=== PATIENT | male | born 1995 | race African-American/Black ===

== ENCOUNTER 2016-08-28 23:43 | Inpatient (IN) | payer MEDICAID ==
[~2016-08-28] VITALS: Ht 170.2 cm; Wt 74.5 kg
[2016-08-29] MEDS ORDERED: SODIUM CHLORIDE 0.9% 1,000 ML IVB ONE (00:03)
[2016-08-29] MEDS ORDERED: LORazepam 2MG/ML-1ML VIAL IV ONE ×3 (00:15→09:45)
[2016-08-29] MEDS ORDERED: diphenhdrAMINE HCL 50 MG/1 ML VL ONE (00:22)
[2016-08-29] MEDS ORDERED: diphenhdrAMINE HCL 50 MG/1 ML VL IV ONE (00:30)
[2016-08-29 00:35] LABS: DEFINITIVE VIEW TRANSMISSION; Hematocrit 51.8 % (41.0-53.0); Hemoglobin 17.4 g/dL (13.5-17.5); Mean Corpuscular Hemoglobin 27.8 pg (28.0-32.0); Mean Corpuscular Hgb Conc. 33.5 g/dL (32.0-36.0); Mean Corpuscular Volume 82.8 fL (80.0-100.0); Mean Platelet Volume 8.1 fL (7.4-10.4); Platelet Count (auto) 400 10^3/uL (140-450); Red Cell Distribution Width 13.9 % (11.6-16.0); SUSPECT VIEW TRANSMISSION
[2016-08-29 00:45] LABS: Metamyelocytes % 0; Myelocytes % 0; Promyelocytes % 0; Reactive Lymphocytes 0
[2016-08-29 00:57] LABS: Albumin 5.2 g/dL (3.4-5.0); Anion Gap 13 (5-15); Aspartate Aminotransferase 28 U/L (15-37); BUN/Creatinine Ratio 15.7; Blood Urea Nitrogen 24 mg/dL (7-18); Carbon Dioxide 25 mmol/L (21-32); Chloride 106 mmol/L (98-107); GFR African American 74 mL/min; GFR Non-African American 61 mL/min; Glucose 136 mg/dL (74-106); Magnesium 2.1 mg/dL (1.6-2.6); Potassium 3.4 mmol/L (3.5-5.1); Sodium 144 mmol/L (136-145)
[2016-08-29 01:00] LABS: Alkaline Phosphatase 83 U/L (45-117); Bilirubin, Total 2.9 mg/dL (0.2-1.0)
[2016-08-29 01:03] LABS: Urine Bilirubin Negative (Negative); Urine Blood Negative /uL (Negative); Urine Color Yellow (Yellow); Urine Glucose Normal (Normal); Urine Mucus FEW (None Seen); Urine Nitrite Negative (Negative); Urine RBC 1 /hpf (0 - 3); Urine pH 5.5 (5.0-8.0)
[2016-08-29 01:04] LABS: Urine Ketone 2+ (Negative)
[2016-08-29 01:04] LABS: Salicylate < 1.7 mg/dL (2.8-20.0)
[2016-08-29 01:29] LABS: Acetaminophen < 2.0 ug/mL (10-30)
[2016-08-29 02:00] LABS: Platelet Estimate Adequate; RBC Morphology Normal
[2016-08-29] MEDS ORDERED: NITROGLYCERIN 0.4 MG SL TAB SL PRN (09:00)
[2016-08-29] MEDS ORDERED: HYDROcodone-ACET 5/325MG TAB PO PRN (09:00)
[2016-08-29] MEDS ORDERED: cefTRIAXone 1GM/50ML D5W 50 ML IV ONE (09:00)
[2016-08-29] MEDS ORDERED: LACTULOSE 20Gm/30ML SOLN PO PRN (09:00)
[2016-08-29] MEDS ORDERED: DEXTROSE (50%) 50ML SYRG IV PRN (09:00)
[2016-08-29] MEDS ORDERED: TEMAZEPAM 15 MG CAP PO PRN (09:00)
[2016-08-29] MEDS ORDERED: MORPHINE SULF INJ 2 MG/ML SYRINGE 1ML IV PRN ×2 (09:00)
[2016-08-29] MEDS ORDERED: PROCHLORPERAZINE EDISYLATE 5 MG/ML 2ML VIAL IV PRN (09:00)
[2016-08-29] MEDS ORDERED: ACETAMINOPHEN 500 MG TAB PO PRN (09:00)
[2016-08-29] MEDS ORDERED: LORazepam 2MG/ML-1ML VIAL ONE (09:33)
[2016-08-29] MEDS: SODIUM CHLORIDE 0.9% 1,000 ML IV SCH ×2 (09:34→19:43)
[2016-08-29] MEDS: cefTRIAXone 1GM/50ML D5W 50 ML IV SCH (09:48)
[2016-08-29 10:22] LABS: INR 1.11 (0.9-1.15); Partial Thromboplastin Time 27.2 sec (22.64-33.71)
[2016-08-29] MEDS: ACCU-CHEK COMFORT CURVE STRIP VI SCH ×3 (12:17→23:46)
[2016-08-29] MEDS ORDERED: ALBUTEROL SULF 2.5 MG/0.5ML(0.5%) NEB SOLN NEB PRN (13:15)
[2016-08-29 13:58] VITALS: BP 106/80
[2016-08-29] MEDS ORDERED: QUEtiapine FUMARATE 100 MG TAB PO ONE (15:15)
[2016-08-29] MEDS: LORazepam 0.5 MG TAB PO PRN (15:37)
[2016-08-29] MEDS: ALBUTEROL SULF 2.5 MG/0.5ML(0.5%) NEB SOLN NEB SCH ×2 (18:00→23:36)
[2016-08-30] MEDS: LORazepam 0.5 MG TAB PO PRN (02:24)
[2016-08-30 04:08] LABS: Basophils # (auto) 0 uL; Basophils % (auto) 0.4 % (0.0-2.0); Eosinophils # (auto) 0.2 uL; Eosinophils % (auto) 2.4 % (0.0-7.0); Hematocrit 45.5 % (41.0-53.0); Hemoglobin 15.1 g/dL (13.5-17.5); Lymphocytes # (auto) 2.9 uL; Lymphocytes % (auto) 34.9 % (10.0-50.0); Mean Corpuscular Hemoglobin 27.8 pg (28.0-32.0); Mean Corpuscular Hgb Conc. 33.2 g/dL (32.0-36.0); Mean Corpuscular Volume 83.8 fL (80.0-100.0); Mean Platelet Volume 8.3 fL (7.4-10.4); Monocytes # (auto) 0.7 uL; Monocytes % (auto) 8.6 % (0.0-12.0); Neutrophils # (auto) 4.5 uL; Neutrophils % (auto) 53.7 % (37.0-80.0); Platelet Count (auto) 287 10^3/uL (140-450); Red Cell Distribution Width 13.7 % (11.6-16.0); White Blood Cell 8.4 10^3/uL (4.4-10.8)
[2016-08-30 04:27] LABS: Albumin 3.5 g/dL (3.4-5.0); BUN/Creatinine Ratio 18.2; Bilirubin, Total 3.1 mg/dL (0.2-1.0); Calcium 8.4 mg/dL (8.5-10.1); Potassium 3.6 mmol/L (3.5-5.1); Total Protein 6.6 g/dL (6.4-8.2)
[2016-08-30] MEDS: SODIUM CHLORIDE 0.9% 1,000 ML IV SCH ×2 (05:08→18:18)
[2016-08-30] MEDS ORDERED: SODIUM CHLORIDE 0.9 % NEB SOLN 3ML NEB ONE ×2 (05:16→12:51)
[2016-08-30] MEDS: ACCU-CHEK COMFORT CURVE STRIP VI SCH ×3 (06:15→18:19)
[2016-08-30] MEDS: ALBUTEROL SULF 2.5 MG/0.5ML(0.5%) NEB SOLN NEB SCH ×3 (06:19→19:18)
[2016-08-30 09:00] VITALS: BP 103/48
[2016-08-30] MEDS: cefTRIAXone 1GM/50ML D5W 50 ML IV SCH (09:17)
[2016-08-30 13:00] VITALS: BP 105/51
[2016-08-30] MEDS ORDERED: AZITHROMYCIN 250 MG TAB PO ONE (13:00)
[2016-08-30 17:00] VITALS: BP 113/68
[2016-08-30 21:00] VITALS: BP_SYST 113; BP_SYST 117; BP_DIAS 69
[2016-08-30] MEDS ORDERED: QUEtiapine FUMARATE 100 MG TAB PO SCH (22:00)
[2016-08-31] MEDS: SODIUM CHLORIDE 0.9% 1,000 ML IV SCH ×2 (01:16→09:26)
[2016-08-31] MEDS: ALBUTEROL SULF 2.5 MG/0.5ML(0.5%) NEB SOLN NEB SCH ×3 (01:22→11:27)
[2016-08-31 05:00] VITALS: BP 108/96
[2016-08-31] MEDS: ACCU-CHEK COMFORT CURVE STRIP VI SCH ×3 (05:29→11:58)
[2016-08-31 06:29] LABS: Basophils # (auto) 0 uL; Basophils % (auto) 0.4 % (0.0-2.0); Eosinophils # (auto) 0.2 uL; Eosinophils % (auto) 2.3 % (0.0-7.0); Hematocrit 45.6 % (41.0-53.0); Hemoglobin 15.3 g/dL (13.5-17.5); Lymphocytes # (auto) 3.2 uL; Lymphocytes % (auto) 32.5 % (10.0-50.0); Mean Corpuscular Hgb Conc. 33.4 g/dL (32.0-36.0); Mean Corpuscular Volume 83.9 fL (80.0-100.0); Monocytes # (auto) 0.7 uL; Monocytes % (auto) 7.1 % (0.0-12.0); Neutrophils # (auto) 5.7 uL; Neutrophils % (auto) 57.7 % (37.0-80.0); Platelet Count (auto) 311 10^3/uL (140-450); Red Cell Distribution Width 13.4 % (11.6-16.0); White Blood Cell 9.8 10^3/uL (4.4-10.8)
[2016-08-31 06:46] LABS: Calcium 8.7 mg/dL (8.5-10.1); Magnesium 2.1 mg/dL (1.6-2.6); Phosphorus 3.9 mg/dL (2.5-4.90); Potassium 3.6 mmol/L (3.5-5.1)
[2016-08-31 09:00] VITALS: BP 110/62
[2016-08-31] MEDS: cefTRIAXone 1GM/50ML D5W 50 ML IV SCH (09:26)
[2016-08-31 13:42] VITALS: BP 110/62
[2016-08-31 14:28] VITALS: BP 110/62
== END 2016-08-31 15:21 | disposition home or self-care (01) | DRG 812 ==
LOC: ER 23:52 → TELE 23:53 → TELE-EAST 08-30 07:45
PROVIDERS: ADMIT Internal Medicine; ATTEND Nurse Practitioner Acute Care
DX: T43.621A Poisoning by amphetamines, accidental (unintentional), initial encounter (principal); G92 Toxic encephalopathy; N17.9 Acute kidney failure, unspecified; F19.10 Other psychoactive substance abuse, uncomplicated; N39.0 Urinary tract infection, site not specified; E87.6 Hypokalemia; E86.0 Dehydration; J45.909 Unspecified asthma, uncomplicated; F41.9 Anxiety disorder, unspecified; Y92.89 Other specified places as the place of occurrence of the external cause
CPT/HCPCS: 36415; 71010; 80048; 80053; 80061; 80320; 80329; 81001; 82550; 82607; 82746; 82962; 83036; 83735; 84100; 84443; 85007; 85025; 85027; 85610; 85652; 85730; 87086; 93005; 94640; 94761; 96361; 96374; 96375; 96376; A4565; G0434; J0696

== ENCOUNTER 2017-04-19 09:42 | Emergency (ER) | payer MEDICAID ==
[~2017-04-19] VITALS: Ht 172.7 cm; Wt 81.6 kg
[2017-04-19 10:55] LABS: Basophils # (auto) 0.1 uL; Basophils % (auto) 0.6 % (0.0-2.0); Eosinophils # (auto) 0 uL; Hematocrit 46.4 % (41.0-53.0); Hemoglobin 15.7 g/dL (13.5-17.5); Lymphocytes # (auto) 1.8 uL; Mean Corpuscular Hemoglobin 27.9 pg (28.0-32.0); Mean Corpuscular Hgb Conc. 33.8 g/dL (32.0-36.0); Mean Corpuscular Volume 82.6 fL (80.0-100.0); Mean Platelet Volume 8.5 fL (6.9-10.8); Monocytes % (auto) 6.4 % (0.0-12.0); Neutrophils # (auto) 12.5 uL; Nucleated Red Blood Cells % 0.1 %; Platelet Count (auto) 306 10^3/uL (140-450); Red Cell Distribution Width 13.6 % (11.8-14.3); White Blood Cell 15.4 10^3/uL (4.4-10.8)
[2017-04-19] MEDS ORDERED: HALOPERIDOL LACTATE 5 MG/ML INJ VIAL IM ONE (11:15)
[2017-04-19 11:32] LABS: BUN/Creatinine Ratio 14.2; Bilirubin, Total 1.8 mg/dL (0.2-1.0); Calcium 9.5 mg/dL (8.5-10.1); Potassium 3.2 mmol/L (3.5-5.1); Total Protein 8.5 g/dL (6.4-8.2)
[2017-04-19 11:53] VITALS: BP 137/73
== END 2017-04-19 13:36 | disposition home or self-care (01) ==
LOC: EDBD 09:42 → ER 09:56
DX: F19.10 Other psychoactive substance abuse, uncomplicated (principal); R41.82 Altered mental status, unspecified
CPT/HCPCS: 36415; 80053; 80307; 85025; 96372; 99284; J1630; J7030